=== PATIENT | male | born 1995 | race African-American/Black ===

== ENCOUNTER 2019-07-17 10:40 | Emergency (ER) | payer OTHER ==
[~2019-07-17] VITALS: Ht 172.7 cm; Wt 95.7 kg
[2019-07-17 11:03] VITALS: BP 148/81
[2019-07-17] MEDS ORDERED: ALBUTEROL SULFATE 2.5 MG/3 ML NEBU. NEB ONE (11:45)
[2019-07-17] MEDS ORDERED: AMOX500C PO (11:55)
[2019-07-17] MEDS ORDERED: ALBU2.5V8 INH (11:55)
[2019-07-17] MEDS ORDERED: METH4TAB2 PO (11:55)
--- NOTE | 2019-07-17 11:55 | PHYS DOC ---
Past Medical History Past Medical History: Asthma, Hypertension Past Surgical History: Other Additional Past Surgical Histo: T&M Additional Information: 2-3 cigarettes daily Alcohol Use: Occasionally Drug Use: None Adult General Chief Complaint Chief Complaint: EARACHE/EAR PAIN HPI HPI Patient is a 23 year old male who presents with chills, sore throat, nasal congestion and ear pain for last week. Patient states the right ear has been painful and now his time hearing out of it. Patient states she's been taking Mucinex. Patient states he is asthmatic and he does smoke but he does not have an inhaler. Patient states he's been using his sister's inhaler instead. Patient states he is not short of breath and does not have any chest pain. Patient states he rates his ear pain is 7 out of 10. Review of Systems Review of Systems Constitutional: fever or chills [] Eyes: Denies change in visual acuity, redness, or eye pain [] HENT: nasal congestion or sore throat, right ear pain [] Respiratory: cough or denies shortness of breath [] Neurologic: Denies headache, focal weakness or sensory changes [] All other systems were reviewed and found to be within normal limits, except as documented in this note. Current Medications Current Medications Current Medications Medications (Trade) Dose Ordered Sig/Daniel Start Time Stop Time Status Last Admin Dose Admin Albuterol Sulfate (Ventolin Neb Soln) 2.5 mg 1X ONCE 07/17/19 11:45 07/17/19 11:46 DC 07/17/19 11:54 2.5 MG Allergies Allergies Allergies Coded Allergies Type Severity Reaction Last Updated Verified No Known Drug Allergies 03/24/15 No Physical Exam Physical Exam Constitutional: Well developed, well nourished, no acute distress, non-toxic appearance. [] HENT: Normocephalic, atraumatic, bilateral external ears normal, oropharynx moist, no oral exudates, nose normal. throat reddened without swelling or exudate. Right tympanic red. Left tympanic boggy. [] Eyes: PERRLA, EOMI, conjunctiva normal, no discharge. [] Neck: Normal range of motion, no tenderness, supple, no stridor. [] Cardiovascular:Heart rate regular rhythm, no murmur [] Lungs & Thorax: Bilateral breath sounds inspiratory , expiratory wheezes to auscultation [] Abdomen: Bowel sounds normal, soft, no tenderness, no masses, no pulsatile masses. [] Skin: Warm, dry, no erythema, no rash. [] Neurologic: Alert and oriented X 3, normal motor function, normal sensory function, no focal deficits noted. [] Psychologic: Affect normal, judgement normal, mood normal. [] Current Patient Data Vital Signs Vital Signs Date Time Temp Pulse Resp B/P (MAP) Pulse Ox O2 Delivery O2 Flow Rate FiO2 07/17/19 11:54 98 Room Air 07/17/19 11:03 98.9 80 16 148/81 (103) 98.9 EKG EKG [] Radiology/Procedures Radiology/Procedures [] Impressions: [facility] [address] [place] [address] IMAGING REPORT Signed PATIENT: SELWYN DOBSON ACCOUNT: [id number] : 1995 LOCATION: ER AGE: 23 SEX: M EXAM STATUS: REG ER ORD. PHYSICIAN: BERYL ROJAS APRN REASON: cough PROCEDURE: CHEST PA & LATERAL CHEST PA LATERAL History: Cough Comparison: None. Findings: The cardiomediastinal silhouette is normal. Pulmonary vasculature is normal. The lungs are clear. No pleural effusion or pneumothorax is seen. There is no acute bone abnormality. IMPRESSION: No acute cardiopulmonary process. Electronically signed by: Kevin Melo MD (07/17/2019 12:16 PM) [facility] DICTATED and SIGNED BY: KEVIN MELO MD DATE: 07/17/19 1216 Course & Med Decision Making Course & Med Decision Making Patient is a 23 year old male who presents with chills, sore throat, nasal congestion and ear pain for last week. Patient states the right ear has been painful and now his time hearing out of it. Patient states she's been taking Mucinex. Patient states he is asthmatic and he does smoke but he does not have an inhaler. Patient states he's been using his sister's inhaler instead. Patient states he is not short of breath and does not have any chest pain. Patient states he rates his ear pain is 7 out of 10. Lungs have inspiratory and expiratory wheezes. Throat is red but there is no swelling or exudates. Patient denies chest pain, shortness of air, dizziness, syncope, abdominal pain, nausea, vomiting, diarrhea. Right tympanic membrane is reddened. Left tympanic membrane is boggy in appearance. Speaks in full clear sentences. Alert and oriented. Skin pink warm and dry. Ambulatory with steady gait. Patient is given a breathing treatment in the ED. Chest Xray shows no acute findings. Patient to follow up with primary care provider. I have discharged the patient with azithromycin, pro air inhaler, and medrol dose pack. Dragon Disclaimer Dragon Disclaimer This electronic medical record was generated, in whole or in part, using a voice recognition dictation system. Departure Departure Impression: Primary Impression: Cough Additional Impression: Otitis media Disposition: 01 HOME, SELF-CARE Condition: STABLE Referrals: NO PCP (PCP) Patient Instructions: Asthma, Adult, Cough, Adult, Otitis Media, Adult Additional Instructions: Follow up with primary care provider. Take medications as prescribed. Stop Smoking. Scripts Albuterol Sulfate (PROAIR HFA INHALER) 8.5 Gm Hfa.aer.ad 1 PUFF INH PRN Q6HRS PRN for SHORTNESS OF BREATH, #1 INHALER 0 Refills Prov: BERYL ROJAS APRN 07/17/19 Methylprednisolone (MEDROL) 4 Mg Tab.ds.pk 1 PKG PO UD, #1 PKG Prov: BERYL ROJAS 07/17/19 Amoxicillin (AMOXICILLIN) 500 Mg Capsule 1 CAP PO BID, #20 CAP Prov: BERYL ROJAS 07/17/19 Problem Qualifiers Additional Impression: Otitis media Otitis media type: unspecified Laterality: right Qualified Codes: H66.91 - Otitis media, unspecified, right ear BERYL ROJAS UNHAIRING INSPECTOR Jul 17, 2019 11:55
--- NOTE | 2019-07-17 12:19 | RAD ---
CHEST PA LATERAL History: Cough Comparison: None. Findings: The cardiomediastinal silhouette is normal. Pulmonary vasculature is normal. The lungs are clear. No pleural effusion or pneumothorax is seen. There is no acute bone abnormality. IMPRESSION: No acute cardiopulmonary process. Electronically signed by: Kevin Moreno MD (07/17/2019 12:16 PM) [facility]
== END 2019-07-17 12:24 | disposition home or self-care (01) ==
LOC: ER 10:40
DX: H66.91 Otitis media, unspecified, right ear (principal); J45.909 Unspecified asthma, uncomplicated; I10 Essential (primary) hypertension; F17.210 Nicotine dependence, cigarettes, uncomplicated
CPT/HCPCS: 71046; 94640; 99284; J7613

== ENCOUNTER 2019-10-13 07:47 | Emergency (ER) | payer OTHER ==
[~2019-10-13] VITALS: Ht 172.7 cm; Wt 100.2 kg
[~2019-10-13 07:47] MED LIST: ALBU2.5V8 INH; AMOX500C PO; METH4TAB2 PO
[2019-10-13 08:00] VITALS: BP 153/91
--- NOTE | 2019-10-13 08:20 | PHYS DOC ---
Past Medical History Past Medical History: Asthma, Hypertension Past Surgical History: Other Additional Past Surgical Histo: T&M Alcohol Use: Occasionally Drug Use: None Adult General Chief Complaint Chief Complaint: FLU SYMPTOM HPI HPI Patient is a 23 year old male who presented to ER today for evaluation of fever or chill cough and sore throat for 2 days. Patient felt like he had the flu. Patient did not get the flu vaccination this season. Patient denies any abdominal pain, no nausea vomiting. Patient had been coughing with white sputum. Patient had not taken any medication today. All other ROS is negative unless otherwise noted in HPI Review of Systems Review of Systems See above Current Medications Current Medications Current Medications Medications (Trade) Dose Ordered Sig/Daniel Start Time Stop Time Status Last Admin Dose Admin Acetaminophen (Tylenol) 1,000 mg 1X ONCE 10/13/19 08:30 10/13/19 08:31 DC 10/13/19 08:41 1,000 MG Ibuprofen (Motrin) 800 mg 1X ONCE 10/13/19 08:30 10/13/19 08:31 DC 10/13/19 08:43 800 MG Allergies Allergies Allergies Coded Allergies Type Severity Reaction Last Updated Verified No Known Drug Allergies 03/24/15 No Physical Exam Physical Exam See above Constitutional: Well developed, well nourished, no acute distress, non-toxic appearance. [] HENT: Normocephalic, atraumatic, bilateral external ears normal, oropharynx moist and erythema, no oral exudates, nose normal. [] Eyes: PERRLA, EOMI, conjunctiva normal, no discharge. [] Neck: Normal range of motion, no tenderness, supple, no stridor. [] Cardiovascular:Heart rate regular rhythm, no murmur [] Lungs & Thorax: Bilateral breath sounds clear to auscultation [] Abdomen: Bowel sounds normal, soft, no tenderness, no masses, no pulsatile masses. [] Skin: Warm, dry, no erythema, no rash. [] Back: No tenderness, no CVA tenderness. [] Extremities: No tenderness, no cyanosis, no clubbing, ROM intact, no edema. [] Neurologic: Alert and oriented X 3, normal motor function, normal sensory function, no focal deficits noted. [] Psychologic: Affect normal, judgement normal, mood normal. [] Current Patient Data Vital Signs Vital Signs Date Time Temp Pulse Resp B/P (MAP) Pulse Ox O2 Delivery O2 Flow Rate FiO2 10/13/19 08:00 103.1 116 18 153/91 (111) 95 Room Air 103.1 Lab Values Laboratory Tests Test 10/13/19 08:15 Influenza Type A Antigen Negative (NEGATIVE) Influenza Type B Antigen Positive (NEGATIVE) EKG EKG [] Radiology/Procedures Radiology/Procedures [][facility] [address] [place] [address] IMAGING REPORT Signed PATIENT: SELWYN DOBSON ACCOUNT: [id number] : 1995 LOCATION: ER AGE: 23 SEX: M EXAM STATUS: REG ER ORD. PHYSICIAN: RICO PATTERSON DO REASON: cough, fever, chill for two days PROCEDURE: CHEST PA & LATERAL CHEST PA LATERAL Clinical indications: Cough and fever. Chills for 2 days. COMPARISON: July 27, 2019. Findings: No acute lung infiltrate or pleural effusion or pulmonary edema or lung mass or pneumothorax is seen. The heart size, pulmonary vasculature, mediastinum and both maxine are unremarkable. The osseous structures appear intact. Impression: No acute radiographic abnormality is seen. Electronically signed by: Vickie Rock MD (10/13/2019 8:33 AM) [facility] DICTATED and SIGNED BY: VICKIE ROCK MD DATE: 10/13/19 0833 Course & Med Decision Making Course & Med Decision Making Pertinent Labs and Imaging studies reviewed. (See chart for details) [] Dragon Disclaimer Dragon Disclaimer This electronic medical record was generated, in whole or in part, using a voice recognition dictation system. Departure Departure Impression: Primary Impression: Influenza B Disposition: HOME, SELF-CARE Condition: STABLE Referrals: NO PCP (PCP) follow up with pcp next week Patient Instructions: Influenza, Adult Scripts Oseltamivir Phosphate (TAMIFLU) 75 Mg Capsule 1 CAP PO BID, #10 CAP Prov: RICO PATTERSON DO 10/13/19 RICO PATTERSON DO Oct 13, 2019 08:20
[2019-10-13] MEDS ORDERED: IBUPROFEN 400 MG TABLET. PO ONE (08:30)
[2019-10-13] MEDS ORDERED: ACETAMINOPHEN 500 MG TABLET PO ONE (08:30)
--- NOTE | 2019-10-13 08:36 | RAD ---
CHEST PA LATERAL Clinical indications: Cough and fever. Chills for 2 days. COMPARISON: July 27, 2019. Findings: No acute lung infiltrate or pleural effusion or pulmonary edema or lung mass or pneumothorax is seen. The heart size, pulmonary vasculature, mediastinum and both maxine are unremarkable. The osseous structures appear intact. Impression: No acute radiographic abnormality is seen. Electronically signed by: Warren Rock MD (10/13/2019 8:33 AM) [facility]
[2019-10-13 08:48] LABS: INFLUENZA A PATIENT NEGATIVE (NEGATIVE)
[2019-10-13 08:50] LABS: INFLUENZA B PATIENT POSITIVE (NEGATIVE)
[2019-10-13] MEDS ORDERED: OSEL75CA PO (09:06)
== END 2019-10-13 09:19 | disposition home or self-care (01) ==
LOC: ER 07:47
DX: J10.1 Influenza due to other identified influenza virus with other respiratory manifestations (principal); I10 Essential (primary) hypertension; J45.909 Unspecified asthma, uncomplicated
CPT/HCPCS: 71046; 87070; 87804; 87880; 99285-25